=== PATIENT | female | born 1990 | race Caucasian/White ===

== ENCOUNTER 2018-11-25 20:07 | Emergency (ER) | payer MEDICAID ==
[~2018-11-25] VITALS: Ht 170.2 cm; Wt 45.0 kg
[~2018-11-25 20:07] MED LIST: CLON0.5T; CLON0.5T11 PO; FOLI-17 PO; FURO20TA3 PO; LEVO25CA2 PO; LORA-446 PO; LORA1TAB PO; LORA2TAB99 PO; METH10TA2 PO; OMEP-110 PO; ONDA4TAB10 PO; OXYC20TA2 PO; OXYC5TAB3 PO; SPIR50TA4 PO; THIA100T67 PO; [UNRECOGNIZED DRUG - REMARK]; levothyroxine; methadone PO
--- NOTE | 2018-11-25 20:58 | NUR ---
PT PRESENTING TO ER FOR INCREASED ANXIETY. RECENT MED CHANGE ON TUESDAY, DECREASED FROM VALIUM 10MG BID TO XANAX DAILY WELL TEGRITOLE ADDED. PT STATES FEELS LIKE SHES WITHDRAWNING. FAMILY AT BEDSIDE. CALL LIGHT WITHIN REACH. AWAITING MD ORDERS AT THIS TIME
[2018-11-25] MEDS ORDERED: DIAZEPAM 5 MG TABLET ONE (21:22)
[2018-11-25 21:25] VITALS: BP 106/70
--- NOTE | 2018-11-25 21:25 | NUR ---
ORDERS RECIEVED, LABS DRAWN, PT MEDICATED. AWAITING RESULTS AND DISPO
[2018-11-25] MEDS ORDERED: DIAZEPAM 5 MG TABLET PO ONE ×2 (21:30)
[2018-11-25 21:34] LABS: BASOPHILS # (AUTO) 0.02 x10^3/uL (0-0.1); BASOPHILS % (AUTO) 0 % (0-1); EOSINOPHILS # (AUTO) 0.02 x10^3/uL (0-0.4); EOSINOPHILS % (AUTO) 1 % (1-7); LYMPHOCYTES # (AUTO) 1.19 x10^3/uL (1-3.4); LYMPHOCYTES % (AUTO) 24 % (22-44); MD NO; MEAN CORPUSCULAR HEMOGLOBIN 32.1 pg (27.0-34.8); MEAN CORPUSCULAR HGB CONC 34.5 g/dL (32.4-35.8); MEAN CORPUSCULAR VOLUME 93.1 fL (80-100); MEAN PLATELET VOLUME 11.9 fL (7.4-10.4); MONOCYTES # (AUTO) 0.33 x10^3/uL (0.2-0.8); MONOCYTES % (AUTO) 7 % (2-9); NEUTROPHILS # (AUTO) 3.34 x10^3/uL (1.8-6.8); NEUTROPHILS % (AUTO) 68 % (42-75); PLATELET COUNT 101 x10^3/uL (130-400); RED BLOOD COUNT 3.85 x10^6/uL (3.82-5.3); RED CELL DISTRIBUTION WIDTH 13.2 % (9.6-15.2)
[2018-11-25 21:44] LABS: ALBUMIN 4.4 g/dL (3.4-5.0); ANION GAP 10 mmol/L (5-15); CALCIUM 8.5 mg/dL (8.5-10.1); CHLORIDE 108 mmol/L (98-107); CREATININE 0.83 mg/dL (0.55-1.02)
--- NOTE | 2018-11-25 22:02 | NUR ---
ALL RESULTS BACK AT THIS TIME, CHART UP FOR RECHECK
== END 2018-11-25 22:39 | disposition home or self-care (01) ==
LOC: ED 21:43
DX: F13.20 Sedative, hypnotic or anxiolytic dependence, uncomplicated (principal); Z76.0 Encounter for issue of repeat prescription; Z88.0 Allergy status to penicillin
CPT/HCPCS: 36415; 80048; 82040; 85025; 99284